=== PATIENT | female | born 1945 | race Two or more races ===

== ENCOUNTER 2024-06-09 10:08 | Emergency (ER) | payer OTHER ==
[~2024-06-09] VITALS: Ht 152.4 cm; Wt 98.0 kg
[~2024-06-09 10:08] MED LIST: COZAAR50 MG PO; DILTIAZEM 24HR240 M1 PO; LASIX20 MG PO; XARELTO20 MG PO; ZOCOR20 MG PO
[2024-06-09] MEDS ORDERED: IRBESARTAN300 MG (10:47)
[2024-06-09] MEDS ORDERED: GABAPENTIN800 M1 (10:47)
[2024-06-09] MEDS ORDERED: XARELTO20 MG (10:47)
[2024-06-09] MEDS ORDERED: ATORVASTATIN CA20 MG (10:47)
[2024-06-09] MEDS ORDERED: PAROXETINE HCL20 MG (10:48)
[2024-06-09] MEDS ORDERED: FAMOTIDINE20 MG (10:48)
[2024-06-09] MEDS ORDERED: PANTOPRAZOLE SO40 MG (10:49)
[2024-06-09] MEDS ORDERED: VITAMIN B-121000 MC4 (10:49)
[2024-06-09] MEDS ORDERED: CARVEDILOL3.125 MG (10:49)
[2024-06-09] MEDS ORDERED: DAFLONEX-XL 11300 MG PO (10:50)
[2024-06-09] MEDS ORDERED: AMLODIPINE BESY10 MG (10:51)
[2024-06-09] MEDS ORDERED: FUROSEMIDE40 MG (10:51)
[2024-06-09] MEDS ORDERED: ALDACTONE25 MG (10:51)
== END 2024-06-09 13:42 | disposition home or self-care (01) ==
LOC: ER 10:09
DX: I10 Essential (primary) hypertension (principal); I89.0 Lymphedema, not elsewhere classified; E66.9 Obesity, unspecified; Z88.0 Allergy status to penicillin; Z88.2 Allergy status to sulfonamides